=== PATIENT | female | born 1965 | race Hispanic/Latino ===

== ENCOUNTER 2021-12-09 18:10 | Emergency (ER) | payer OTHER, BC ==
[2021-12-09] MEDS ORDERED: IBUPROFEN 600 MG TABLET PO ONE (20:30)
[2021-12-09] MEDS ORDERED: ONDANSETRON ODT 4MG TAB SL ONE (21:30)
[2021-12-09] MEDS ORDERED: IBUP-2070 PO (21:33)
[2021-12-09 21:54] VITALS: BP 172/92
== END 2021-12-09 22:09 | disposition home or self-care (01) ==
LOC: EDH 18:10
DX: R07.89 Other chest pain (principal); M25.571 Pain in right ankle and joints of right foot; R51.9 Headache, unspecified; Z79.1 Long term (current) use of non-steroidal anti-inflammatories (NSAID); V49.49XA Driver injured in collision with other motor vehicles in traffic accident, initial encounter; Y93.89 Activity, other specified; Y92.89 Other specified places as the place of occurrence of the external cause; Y99.8 Other external cause status
CPT/HCPCS: 71045; 73610; 93005

== ENCOUNTER → 2022-01-06 | Outpatient (CLI) | payer BC ==
[~2022-01-06] MED LIST: EMPA25TA PO; IBUP-2070 PO; LISI10TA24 PO; METF-526 PO; OMEP20CA12 PO; PANT40TA54 PO
== END | disposition home or self-care (01) ==
LOC: RAH 07:08
PROVIDERS: ATTEND Neurological Surgery
DX: S06.5X0A Traumatic subdural hemorrhage without loss of consciousness, initial encounter (principal); X58.XXXA Exposure to other specified factors, initial encounter; Y93.89 Activity, other specified; Y92.89 Other specified places as the place of occurrence of the external cause; Y99.8 Other external cause status
CPT/HCPCS: 70450